=== PATIENT | female | born 1955 | race Caucasian/White ===

== ENCOUNTER → 2023-12-15 10:31 | Outpatient (REF) | payer MEDICARE, OTHER, SELFPAY | LOC: HWRAD 10:31 | PROVIDERS: ATTENDING PHYSICIAN Obstetrics & Gynecology Gynecology; FAMILY PHYSICIAN Family Medicine | DX: Z12.31 Encounter for screening mammogram for malignant neoplasm of breast (principal); Z78.0 Asymptomatic menopausal state | CPT/HCPCS: 77063; 77067; 77080 ==

== ENCOUNTER → 2024-02-03 10:53 | Outpatient (REF) | payer MEDICARE, OTHER, SELFPAY | LOC: HWRAD 10:53 | PROVIDERS: ATTENDING PHYSICIAN Specialist; FAMILY PHYSICIAN Family Medicine | DX: R31.0 Gross hematuria (principal) | CPT/HCPCS: 76770 ==

== ENCOUNTER → 2025-01-28 13:31 | Outpatient (REF) | payer MEDICARE, OTHER, SELFPAY | LOC: HWWDC 13:31 | PROVIDERS: ATTENDING PHYSICIAN Obstetrics & Gynecology Gynecology; FAMILY PHYSICIAN Family Medicine | DX: Z12.31 Encounter for screening mammogram for malignant neoplasm of breast (principal) | CPT/HCPCS: 77063; 77067 ==

== ENCOUNTER 2025-02-20 13:09 | Inpatient (IN) | payer MEDICARE, OTHER, SELFPAY ==
[2025-02-20] VITALS (9 sets, daily range): BP systolic 140–221; BP diastolic 62–107; BMI 33.2
--- NOTE | 2025-02-20 08:14 | EDRN ---
Yadira MARTINEZ in room w/pt at this time.
--- NOTE | 2025-02-20 08:24 | ED.GENMED ---
History of Present Illness
General
Chief Complaint: Abdominal Symptoms
Source: patient
Exam Limitations: none
Time Seen by Provider: 02/20/25 08:11
History of Present Illness
History of Present Illness:
69yoF with a history of prior PE on Eliquis, hypertension, and hyperlipidemia presenting with her for evaluation of blood in the stool. Patient started with diarrhea last night. Around 2-3 AM this morning, she noticed some blood in her
stool. She states she is no longer passing any stool but is passing mucus with bright red blood mixed in. She is also having pain in her lower abdomen which is colicky in nature. She has had some nausea but denies any vomiting. No fevers. She
did eat at a restaurant for lunch yesterday. No recent travel, sick contacts, or recent antibiotics. Last colonoscopy was in 2022 which showed multiple polyps, diverticulosis, and internal hemorrhoids. No previous abdominal surgeries.
Past History
Past History
ED Past Medical History: GERD, HTN, Hypercholesterolemia and Other (History of cataracts, macular degeneration, DVT/PE)
ED Past Surgical History: Other (Eye surgery for cataracts and macular degeneration, and surgery to the sinuses)
Social History
Tobacco: Non-smoker
Personal:
Living: with family
Employment: Not employed
Phy Exam
General Physical Exam
General Presentation: well appearing and no apparent distress
General Skin: warm and dry
General Habitus: normal
General Mental: alert
ENT Exam
ENT Exam: normocephalic
Pulmonary Exam
Pulmonary Exam: no respiratory distress
Gastrointestinal Exam
Gastrointestinal Exam: soft, non distended and other (+Tenderness in lower abdomen. Abdomen soft, non-distended. No rebound or guarding.)
Rectal Exam: other (Red tinged mucous noted on rectal exam. No stool obtained.)
Neurological Exam
Neurological Exam: alert
Crystal Coma Scale
Eye Opening: Spontaneous
Verbal Response: Oriented
Motor Response: Obeys Commands
GCS Total Score: 15
Skin Exam
Skin Exam: normal color and warm/dry
Psychiatric Exam
Psychiatric Exam: normal mood/affect
Course
Orders/Labs/Results
Orders:
Orders
02/20/25 08:18
CT Abd/pelvis W Iv Cont Urgent
Comment:
Reason For Exam: lower abd pain, diarrhea, blood in stool
02/20/25 08:36
Complete Blood Count/With Diff Urgent
Comprehensive Metabolic Panel Urgent
Lipase Urgent
PTT Urgent
Prothrombin Time Urgent
02/20/25 09:44
Lactic Acid Urgent
02/20/25 10:35
CefTRIAXone [Rocephin] 2,000 mg IV NOW STA
MetroNIDAZOLE 500 MG/100 ML [Flagyl 500 mg] 100 ml IV NOW
02/20/25 10:59
Sterile Water [Sterile Water For Injection] 20 ml .ROUTE .STK-MED
02/20/25 12:46
Admit/Transfer Patient As Directed
Co-Sign Provider:
Level of Care: Inpatient admission
Assign to:: Medical/Surgical
Physician / Group: Hospitalist
Diagnosis: Colitis
Reason for Hospitalization: Colitis with bloody stool
Expected length of stay greater than two midnights?: Yes
ELOS- Estimated Length of Stay in days: 3
I certify the patient meets the requirements for IP care: Yes
PRN Pain Medication Management As Directed
May give lesser potent ordered pain med per pt: Yes
preference::
Protocol:: Medication orders for pain may be administered in a
manner that supports deferring to patient preference
when the pt is:
- Requesting an ordered lesser potent pain medication.
Least to most potent pain medications are defined
as: acetaminophen < NSAID < tramadol < opioids
(morphine, oxycodone, hydromorphone).
- Requesting a lesser dose of the same medication IF
ORDERED.
- Requesting a less intrusive route of administration
if both routes are prescribed by the provider (PO <
IV).
02/20/25 12:48
Code Status As Directed
Resuscitation Status: Full Code
Abnormal Lab Results
02/20/25
08:36
MCH 32.2 H pg
(27.0-31.0)
Absolute Monos (auto) 0.8 H 10^3/uL
(0.1-0.6)
Lymphocytes % 17.1 L %
(20.5-51.1)
PT 14.7 H Sec
(11.4-14.6)
Chloride 109 H mmol/L
(98-107)
Creatinine 0.5 L mg/dL
(0.6-1.0)
Glucose 128 H mg/dl
(70-99)
Alkaline Phosphatase 30 L U/L
(38-126)
02/20/25 08:36
02/20/25 08:36
Vital Signs
Initial and Last Documented VS:
Initial Vital Signs
Temp Pulse Resp BP Pulse Ox
98.3 F 68 15 221/107 97
02/20/25 07:34 02/20/25 07:34 02/20/25 07:34 02/20/25 07:34 02/20/25 07:34
Last Documented Vital Signs
Temp Pulse Resp BP Pulse Ox
98.3 F 56 19 176/62 94
02/20/25 07:36 02/20/25 10:30 02/20/25 10:30 02/20/25 10:00 02/20/25 10:30
MDM/Problems Addressed
Differential Diagnosis Includes:
69yoF here with diarrhea since last night. Developed bloody stool overnight. C/o lower abd pain. On Eliquis for hx of PE. She is hypertensive with otherwise stable vitals. No signs of peritonitis on abdominal exam. Blood tinged mucous noted on
rectal exam. Differential diagnosis includes but is not limited to: infectious diarrhea, colitis, diverticular bleeding, hemorrhoidal bleeding, malignancy
Initial ED plan: Check abdominal labs, coags, lactate, and CT abdomen with IV contrast.
*Critical Care Note
Total Time (30-74mins, 75-104mins- exclusive of procedures): Not Applicable
Update Note
Update Note:
Hemoglobin is stable at 14.0. CT shows moderate acute colitis throughout the sigmoid colon. Lactate within normal limits. IV Rocephin and Flagyl ordered. Patient admitted for further management.
ED Attending Note
-
Portions of this chart may have been created with voice recognition software.� Occasional wrong word or��sound alike� substitutions may have occurred due to the inherent limitations of voice recognition software.
Discharge Plan
Departure
Patient Disposition: Admit
Date of Disposition: 02/20/25
Time of Disposition: 10:37
Presentation/result/management discussed w/ accepting MD/DO: Hospitalist
Discharge Problem:
Colitis, GI bleed
Interventions
Interventions:
*Risk Screen - Suicide Last Done: 02/20/25 07:36
*General Assessment Last Done: 02/20/25 08:26
*Neglect/Abuse Screening Last Done: 02/20/25 07:36
*ED- Fall Risk Assessment Last Done: 02/20/25 08:26
*ED COVID-19 Vaccine History Last Done: 02/20/25 08:26
GU-Cevzpu-Qdadcrgvag Assessment Last Done: 02/20/25 08:38
[2025-02-20 09:02] LABS: % Basophils 0.7 % (0-2); % Eosinophils 2.3 % (0-6); % Immature Granulocytes 0.3 % (0-0.5); % Lymphocytes 17.1 % (20.5-51.1); % Monocytes 8.8 % (1.7-9.3); % Neutrophils 70.8 % (42.2-75.2); Absolute Basophils 0.1 10^3/uL (0-0.2); Absolute Eosinophils 0.2 10^3/uL (0-0.7); Absolute Lymphocytes 1.6 10^3/uL (1.2-3.4); Absolute Monocytes 0.8 10^3/uL (0.1-0.6); Absolute Neutrophils 6.5 10^3/uL (1.4-6.5); Hematocrit 41.4 % (37.0-47.0); Mean Corp Hgb Conc. 33.8 g/dL (33.0-37.0); Mean Corpuscular Hgb 32.2 pg (27.0-31.0); Mean Corpuscular Volume 95.2 fL (81.0-99.0); Mean Platelet Volume 9.9 fL (7.4-10.4); Nucleated Red Blood Cells % 0 %; Platelet Count 255 10^3/uL (130-400); Red Blood Cell Count 4.35 10^6/uL (4.20-5.40); Red Cell Dist. Width 12.3 % (11.5-14.5); White Blood Cell Count 9.2 10^3/uL (4.8-10.8)
[2025-02-20 09:12] LABS: INR 1.11; PT 14.7 Sec (11.4-14.6)
[2025-02-20 09:13] LABS: APTT 33.2 Sec (23.4-35.0)
[2025-02-20 09:16] LABS: ALT (SGPT) 35 U/L (0-35); AST (SGOT) 34 U/L (14-36); Albumin 4.8 g/dl (3.5-5.0); Alkaline Phosphatase 30 U/L (38-126); Blood Urea Nitrogen 14 mg/dl (7-17); Calcium 9.7 mg/dl (8.4-10.2); Carbon Dioxide 24 mmol/L (22-30); Chloride 109 mmol/L (98-107); Estimated Creatinine Clearance 87 ml/min; Glucose 128 mg/dl (70-99); Lipase 92 U/L (23-300); Potassium 4.1 mmol/L (3.5-5.1); Sodium 143 mmol/L (135-145); Total Bilirubin 0.6 mg/dl (0.2-1.3); Total Protein 7.4 g/dl (6.3-8.2); eGFR > 60.00
[2025-02-20 10:11] LABS: Lactic Acid 1.7 mmol/L (0.7-2.0)
--- NOTE | 2025-02-20 10:37 | EDRN ---
Yadira Marr PA in to speak w/ pt. Pt has colitis and will be admitted.
[2025-02-20] MEDS: ROCEPHIN 2000 MG IV (11:03)
[2025-02-20] MEDS: FLAGYL 500 MG 100 IV ×2 (11:10→21:19)
--- NOTE | 2025-02-20 12:07 | HPS.HSE ---
Family Physician
-
Family Physician: Raciel Lucero
Chief Complaint
-
Blood in stool
History of Present Illness
69 yo woman with a history of prior PE on Eliquis, hypertension, and hyperlipidemia presented for evaluation of blood in the stool. SHe had diarrhea last night. 2 AM this morning, she noticed some blood in her stool. She states she is no longer
passing any stool but is passing mucus with bright red blood mixed in. She is also having pain in her lower abdomen which is colicky in nature. She has had some nausea but denies any vomiting. No fevers. She did eat at a restaurant for lunch
yesterday. No recent travel, sick contacts, or recent antibiotics. Last colonoscopy was in 2022 which showed multiple polyps, diverticulosis, and internal hemorrhoids. No previous abdominal surgeries. At the time of my interview she was still
having abd cramps.
Medical History
Past Medical History
Past Medical History: Reports Other
Additional Past Medical History:
PE on Eliquis,
essential hypertension,
hyperlipidemia
Esophageal reflux
macular degeneration
Sleep apnea
fatty liver
Past Surgical History: Reports None
Social History
Tobacco: Non-smoker
Alcohol: None
Drug: None
Personal:
Living: With Family
Family History
Family History: Not pertinent
Allergies / Home Medications
Allergies reflects when Allergies were last updated in eROI.
Home Medications with original date entered in eROI
Allergy/Medication List:
Allergies
Allergy/AdvReac Type Severity Reaction Status Date / Time
Penicillins AdvReac DIARRHEA Verified 02/20/25 07:39
environmental Allergy nasal Uncoded 02/20/25 07:39
congestion
Home Medications
metoprolol succinate 50 mg tablet,extended release 24 hr 50 mg PO DAILY 04/17/13
modafinil 200 mg tablet 200 mg PO DAILY 04/17/13
simvastatin 20 mg tablet 20 mg PO QPM 04/17/13
fenofibric acid (choline) 135 mg capsule,delayed release 135 mg PO HS 01/20/14
ascorbic acid (vitamin C) 500 mg tablet (Vitamin C) 500 mg PO DAILY 08/09/20
esomeprazole magnesium 20 mg capsule,delayed release (Nexium) 20 mg PO DAILY 08/09/20
ioylinry-ywpy-cnup 8 mg-folic 400 mcg-K 50 mcg-lutein 300 mcg tablet (Centrum Silver Women) 1 ea PO DAILY 08/09/20
acetaminophen 650 mg tablet,extended release 1,300 mg PO BID 02/20/25
alendronate 70 mg tablet 70 mg PO MO 02/20/25
apixaban 2.5 mg tablet (Eliquis) 2.5 mg PO BID 02/20/25
cholecalciferol (vitamin D3) 50 mcg (2,000 unit) tablet 50 mcg PO DAILY 02/20/25
fexofenadine 180 mg tablet 180 mg PO HS 02/20/25
fluticasone propionate 50 mcg/actuation nasal spray,suspension 1 spray intranasal DAILY 02/20/25
guar gum 1 tbsp PO DAILY 02/20/25
peg 400-propylene glycol 0.4 %-0.3 % eye drops (Systane Ultra) 1 drp ophthalmic (eye) BID 02/20/25
Review of Systems
-
History Source: Patient
A 12 point ROS was completed and negative except as noted: Yes
Abdomen/GI: Reports Abdominal Pain and Bloody Stools
Physical Exam
Vital Signs
Vital Signs
Temp Pulse Resp BP Pulse Ox
98.3 F 56 19 176/62 94
02/20/25 07:36 02/20/25 10:30 02/20/25 10:30 02/20/25 10:00 02/20/25 10:30
Physical Exam
General: Well Developed, Well Nourished, No Apparent Distress, Comfortable, Conversant and Obese
HEENT: NormoCephalic, Moist mucous membranes, Nose Appears Normal and Ears Appear Normal
Respiratory: Clear
Cardiac: S1/S2 and Regular Rhythm
GI: Soft, Non Tender and Non Distended
Musculoskeletal: No Clubbing, No Cyanosis and No Edema
Skin: Warm and Dry
Neuro: Awake, Alert and Oriented
Psych: Calm
Laboratory Results
-
02/20/25 08:36
02/20/25 08:36
Laboratory Results
PT 14.7 Sec (11.4-14.6) H 02/20/25 08:36
INR 1.11 02/20/25 08:36
APTT 33.2 Sec (23.4-35.0) 02/20/25 08:36
Lactic Acid 1.7 mmol/L (0.7-2.0) 02/20/25 09:44
Total Bilirubin 0.6 mg/dl (0.2-1.3) 02/20/25 08:36
AST 34 U/L (14-36) 02/20/25 08:36
ALT 35 U/L (0-35) 02/20/25 08:36
Alkaline Phosphatase 30 U/L (38-126) L 02/20/25 08:36
Lipase 92 U/L (23-300) 02/20/25 08:36
Data Reviewed
-
Lab Data: Labs Reviewed by me
Impression/Plan
-
IMPRESSION:
69 woman with bloody/mucosy stool and a CT that shows:
1. MODERATE ACUTE COLITIS throughout the SIGMOID COLON with moderate wall thickening and submucosal edema. Diagnostic possibilities are (1) acute infection, (2) acute inflammatory bowel disease, or (3) acute ischemic colitis.
2. Mild diverticulosis in the distal sigmoid colon.
3. 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
4. SEVERE DIFFUSE HEPATIC STEATOSIS.
5. Small nonobstructing right intrarenal calculi.
6. Small hiatal hernia.
PLAN:
1. Colitis- no outpatient antibiotics, infectious cause most likely
IV flagyl
IV cipro
IV fluids
sips of clears, then advance as tolerated
Pain control as needed
H/H Q6
2. H/O saddle embolus PE
Continue eliquis for now - no signs of anemia
If bleeding continues, switch to IV heparin and consult pulmonary
3. Essential HTN, BP high at this time
OK to take PO meds
Give prescribed metoprolol
Full code
Eliquis for DVTp
--- NOTE | 2025-02-20 12:18 | CM ---
CM met with pt and spouse bedside
They reside in a 2SH with 2STE, full flight to 2nd floor
Pt is indep with her ADLs without use of a ADs, drives+
Has a WW, SPC and WC fo edda as needed
Has a cpap which she utilizes nightly
Denies financial insecurities
Part D through [employer]
PCP- Raciel Lucero
Rx- Quincy [facility]
Discharge Disposition- anticipate home no needs
[2025-02-20] MEDS: CIPRO 400 MG 200 IV (16:10)
[2025-02-20] MEDS: NSS 1000 IV (16:10)
--- NOTE | 2025-02-20 16:49 | PTCARENOTE ---
received pt to floor from ED approx 1530. Oriented to room, VSS obtained, call harry within reach, bed in lowest position. NPO for now. Follow plan of care
[2025-02-20] MEDS: TYLENOL 650 MG PO ×2 (17:22→21:19)
[2025-02-20] MEDS: LIPITOR 10 MG PO (17:23)
[2025-02-20] MEDS: ELIQUIS 2.5 MG PO (21:18)
[2025-02-20] MEDS: REFRESH EYE DROPS (PF) 1 DROPS BOTH EYES (21:19)
[2025-02-20] MEDS: CLARITIN 10 MG PO (21:21)
--- NOTE | 2025-02-21 02:03 | PTCARENOTE ---
patient was offered perineal care multiple times, but they stated that it was their preference to do it in the morning.
[2025-02-21] MEDS: NSS 1000 IV (03:52)
[2025-02-21] MEDS: CIPRO 400 MG 200 IV ×2 (03:53→17:03)
[2025-02-21] MEDS: FOSAMAX 70 MG PO (06:02)
[2025-02-21 06:26] LABS: Hematocrit 36.2 % (37.0-47.0); Hemoglobin 12.3 g/dL (12.0-16.0); Mean Corpuscular Hgb 32.1 pg (27.0-31.0); Mean Corpuscular Volume 94.5 fL (81.0-99.0); Mean Platelet Volume 9.9 fL (7.4-10.4); Platelet Count 217 10^3/uL (130-400); Red Blood Cell Count 3.83 10^6/uL (4.20-5.40); Red Cell Dist. Width 12.5 % (11.5-14.5)
[2025-02-21 06:49] LABS: Blood Urea Nitrogen 11 mg/dl (7-17); Calcium 8.5 mg/dl (8.4-10.2); Carbon Dioxide 22 mmol/L (22-30); Chloride 111 mmol/L (98-107); Estimated Creatinine Clearance 87 ml/min; Glucose 116 mg/dl (70-99); Potassium 3.5 mmol/L (3.5-5.1); Sodium 140 mmol/L (135-145); eGFR > 60.00
[2025-02-21 07:18] VITALS: BP 154/60
[2025-02-21] MEDS: TYLENOL 650 MG PO ×3 (09:17→21:30)
[2025-02-21] MEDS: TOPROL XL 50 MG PO (09:17)
[2025-02-21] MEDS: PROTONIX 40 MG PO (09:18)
[2025-02-21] MEDS: VITAMIN D3 (cholecalciferol) 50 MCG PO (09:18)
[2025-02-21] MEDS: ELIQUIS 2.5 MG PO ×2 (09:18→21:30)
[2025-02-21] MEDS: REFRESH EYE DROPS (PF) 1 DROPS BOTH EYES ×2 (09:18→21:30)
[2025-02-21] MEDS: VITAMIN C 500 MG PO (09:21)
[2025-02-21] MEDS: FLAGYL 500 MG 100 IV ×2 (09:24→21:30)
--- NOTE | 2025-02-21 11:43 | W.PN.HOSP.TC ---
Today's Communication/Plan
-
Start diet. Continue antibiotics
Assessment / Plan
Assessment / Plan
Physical exam:
General: Acutely ill
HEENT: Normocephalic, Atraumatic and Moist Mucous Membranes
Respiratory: Clear to Auscultation; Negative Wheezes, Rales or Rhonchi
Cardiac: Regular Rhythm and S1/S2
GI: Soft, Nontender and Nondistended
Musculoskeletal: No Clubbing, No Cyanosis and No Edema
Neuro: Awake, Alert and Oriented, no neurological deficit
Psych: Calm
A/P:
Acute colitis, infectious versus ischemic:
Start clear liquid diet today and advance as tolerated
Continue IV antibiotics
Stop IV fluids
She has seen GI as outpatient-Dr. Longoria and had colonoscopy a few years ago. Will have her see her as outpatient.
Reviewed last colonoscopy with polyps, internal hemorrhoids, and diverticulosis in the sigmoid colon back in September 2022.
Monitor clinical course
History of PE:
Continue oral Eliquis
Hypertension:
Continue metoprolol succinate 50 mg p.o. daily
Hyperlipidemia:
Continue atorvastatin 10 mg p.o. every evening
DVT prophylaxis:
Already on Eliquis
CODE STATUS:
Full code
Anticipated Discharge: Within 24 hours
Subjective/Interval History
-
Date of Service: February 21, 2025
Patient abdominal pain improved, she has not seen much of bloody stools. No nausea or vomiting. Afebrile
Objective Data
-
Labs:
Laboratory Results
02/21/25
05:29
WBC 7.0
Hgb 12.3
Hct 36.2 L
Plt Count 217
Sodium 140
Potassium 3.5
Chloride 111 H
Carbon Dioxide 22
BUN 11
Creatinine 0.5 L
Glucose 116 H
Calcium 8.5
Vital Signs:
Vital Signs
Temp Pulse Resp BP Pulse Ox
98.2 F 61 17 154/60 96
02/21/25 07:18 02/21/25 09:17 02/21/25 07:18 02/21/25 09:17 02/21/25 07:18
I&O
02/20/25 02/21/25 02/22/25
06:59 06:59 06:59
Intake Total 1440 / 1440
Balance 1440 / 1440
[2025-02-21] MEDS: NSS IV (11:50)
[2025-02-21 15:21] VITALS: BP 172/76
[2025-02-21] MEDS: LIPITOR 10 MG PO (17:00)
[2025-02-21] MEDS: TYLENOL PO ×2 (17:03→17:05)
[2025-02-21] MEDS: CLARITIN 10 MG PO (21:31)
[2025-02-21 23:45] VITALS: BP 166/82
[2025-02-22] MEDS: APRESOLINE 10 MG IV (01:02)
[2025-02-22] MEDS: CIPRO 400 MG 200 IV (03:10)
[2025-02-22 03:19] VITALS: BP 155/59
[2025-02-22 06:46] LABS: Hematocrit 37.8 % (37.0-47.0); Hemoglobin 13.1 g/dL (12.0-16.0); Mean Corp Hgb Conc. 34.7 g/dL (33.0-37.0); Mean Corpuscular Hgb 32.4 pg (27.0-31.0); Mean Corpuscular Volume 93.6 fL (81.0-99.0); Platelet Count 250 10^3/uL (130-400); Red Blood Cell Count 4.04 10^6/uL (4.20-5.40); Red Cell Dist. Width 12.4 % (11.5-14.5); White Blood Cell Count 6.1 10^3/uL (4.8-10.8)
[2025-02-22 07:27] VITALS: BP 150/68
[2025-02-22] MEDS: TYLENOL 650 MG PO (07:55)
[2025-02-22] MEDS: PROTONIX 40 MG PO (07:55)
[2025-02-22] MEDS: TOPROL XL 50 MG PO (07:56)
[2025-02-22] MEDS: VITAMIN D3 (cholecalciferol) 50 MCG PO (07:56)
[2025-02-22] MEDS: REFRESH EYE DROPS (PF) 1 DROPS BOTH EYES (07:56)
[2025-02-22] MEDS: ELIQUIS 2.5 MG PO (07:56)
[2025-02-22] MEDS: VITAMIN C 500 MG PO (07:59)
--- NOTE | 2025-02-22 08:42 | W.PN.HOSP.TC ---
Today's Communication/Plan
-
Discharge planning today
Assessment / Plan
Assessment / Plan
Physical exam:
General: No acute distress
HEENT: Normocephalic, Atraumatic and Moist Mucous Membranes
Respiratory: Clear to Auscultation; Negative Wheezes, Rales or Rhonchi
Cardiac: Regular Rhythm and S1/S2
GI: Soft, Nontender and Nondistended
Musculoskeletal: No Clubbing, No Cyanosis and No Edema
Neuro: Awake, Alert and Oriented, no neurological deficit
Psych: Calm
A/P:
Acute colitis, infectious versus ischemic:
Advance diet to low residue today
Change IV antibiotics to oral
Of IV fluids
She has seen GI as outpatient-Dr. Longoria and had colonoscopy a few years ago. Will have her see her as outpatient.
Reviewed last colonoscopy with polyps, internal hemorrhoids, and diverticulosis in the sigmoid colon back in September 2022.
Monitor clinical course
History of PE:
Continue oral Eliquis
Hypertension:
Continue metoprolol succinate 50 mg p.o. daily
Hyperlipidemia:
Continue atorvastatin 10 mg p.o. every evening
DVT prophylaxis:
Already on Eliquis
CODE STATUS:
Full code
Anticipated Discharge: Today
Subjective/Interval History
-
Date of Service: February 22, 2025
Feels well back to baseline. No diarrhea. No rectal bleeding. Tolerating diet. Afebrile
Objective Data
-
Labs:
Laboratory Results
02/22/25
05:43
WBC 6.1
Hgb 13.1
Hct 37.8
Plt Count 250
Vital Signs:
Vital Signs
Temp Pulse Resp BP Pulse Ox
98.0 F 65 17 150/68 96
02/22/25 07:27 02/22/25 07:56 02/22/25 07:27 02/22/25 07:56 02/22/25 07:27
I&O
02/21/25 02/22/25 02/23/25
06:59 06:59 06:59
Intake Total 1440 / 1440 880 / 880
Balance 1440 / 1440 880 / 880
[2025-02-22] MEDS: CIPRO 500 MG PO (09:14)
[2025-02-22] MEDS: FLAGYL 500 MG PO (09:14)
--- NOTE | 2025-02-22 10:11 | W.DCSUMMARY ---
Discharge Summary
Discharge Data
Date of Admission: 02/20/25
Date of Discharge: 02/22/25
Total time spent discharging patient (in min): 32
-
Pending Results: No
Hospital Course
Patient 69 years old female with past medical history of hypertension, hyperlipidemia, PE on anticoagulation, presented to the hospital with abdominal pain and bright blood per rectum with diarrhea. Patient had CT scan of the abdomen shows moderate
colitis throughout the sigmoid colon. She had appropriate colonoscopy as outpatient in the recent past. She was treated with bowel rest n.p.o. IV fluids and IV antibiotics. Patient symptoms subsided. Her clinical picture was consistent with
either ischemic colitis or infectious colitis and currently treated and responding appropriately. Her diarrhea resolved. No more abdominal pain. Hemodynamically stable and afebrile. Patient tolerated anticoagulation without any problems.
Patient is also tolerating diet without any problems. We are switching her antibiotics to oral. Patient can be discharged in stable condition today.
Discharge duration: 32 minutes
Discharge Plan
-
Patient Disposition: Home (Routine Discharge)
Discharge Diagnosis/Procedures: colitis, likely infectious or ischemic. History of pulmonary emboli. Hypertension
Diet: Low Residue
Additional Diets: After 1 week can increase fiber in diet.
Activity: As tolerated
Blood Work: Please PCP to order CBC, BMP within 1 week
Referrals:
Raciel Lucero MD [Family Provider] - in less than 1 week
Ashkan Longoria MD [Active, Gastroenterology] - in one to two months
Prescriptions:
New
metronidazole 500 mg Tablet
500 mg PO Q8 5 Days Qty: 15 0RF
ciprofloxacin HCl 500 mg Tablet
500 mg PO BID 5 Days Qty: 10 0RF
Continued
metoprolol succinate 50 MG tablet extended release 24 hr
50 mg PO DAILY
modafinil 200 MG tablet
200 mg PO DAILY
simvastatin 20 MG tablet
20 mg PO QPM
fenofibric acid (choline) 135 MG capsule,delayed release(DR/EC)
135 mg PO HS
ascorbic acid (vitamin C) [Vitamin C] 500 MG tablet
500 mg PO DAILY
esomeprazole magnesium [Nexium] 20 MG capsule,delayed release(DR/EC)
20 mg PO DAILY
Centrum Silver Women 1 EACH tablet
1 ea PO DAILY
alendronate 70 mg tablet
70 mg PO MO
fexofenadine 180 mg Tablet
180 mg PO HS
Systane Ultra 0.4-0.3 % Drops
1 drp OPHTHALMIC (EYE) BID
Eliquis 2.5 mg Tablet
2.5 mg PO BID
guar gum Packet
1 tbsp PO DAILY
acetaminophen 650 mg Tablet Extended Release
1,300 mg PO BID
fluticasone propionate 50 mcg/actuation [place],Suspension
1 spray INTRANASAL DAILY
cholecalciferol (vitamin D3) 50 mcg (2,000 unit) Tablet
50 mcg PO DAILY
Discharge Orders:
Discharge Patient (As Directed); Ordered 02/22/25
Ordered By: Amor Rios
Discharge Date and Time
Discharge Date/Time: 02/22/25 11:28
Print Language: ARMENIAN
--- NOTE | 2025-02-22 10:28 | CM ---
Patient seen at bedside on . Johny present. Patient confirmed plan is for discharge home today. Patient with no needs at this time. IMM completed and signed. Form placed on chart. Patient to provide transportation home. CM will
continue to follow for discharge planning needs.
Plan; home with no needs.
[2025-02-22 11:14] VITALS: BP 141/66
== END 2025-02-22 11:28 | disposition home or self-care (01) | DRG 392 ==
LOC: 3 WEST ACU 13:09
PROVIDERS: Physician Assistant; ADMITTING PHYSICIAN Internal Medicine; ATTENDING PHYSICIAN Hospitalist; EMERGENCY PHYSICIAN Emergency Medicine; FAMILY PHYSICIAN Family Medicine
DX: A09 Infectious gastroenteritis and colitis, unspecified (principal); Z86.711 Personal history of pulmonary embolism; I10 Essential (primary) hypertension; Z79.01 Long term (current) use of anticoagulants; Z79.83 Long term (current) use of bisphosphonates; E78.00 Pure hypercholesterolemia, unspecified; Z86.0100 Personal history of colon polyps, unspecified; K21.9 Gastro-esophageal reflux disease without esophagitis; H35.30 Unspecified macular degeneration; G47.30 Sleep apnea, unspecified; K76.0 Fatty (change of) liver, not elsewhere classified; K44.9 Diaphragmatic hernia without obstruction or gangrene; N20.0 Calculus of kidney
CPT/HCPCS: 74177; 80048; 80053; 83605; 83690; 85025; 85027; 85610; 85730; 96365; 96375; 99285; Q9967